=== PATIENT | male | born 1960 | race Hispanic/Latino ===

== ENCOUNTER 2016-09-04 19:41 | Emergency (ER) | payer OTHER ==
[~2016-09-04] VITALS: Ht 165.1 cm; Wt 66.9 kg
[~2016-09-04 19:41] MED LIST: HYDROCODON-ACE1 EAC7 PO
[2016-09-04] MEDS ORDERED: LORTAB 5-325 M1 EACH PO (20:57)
[2016-09-04 21:32] VITALS: BP 123/76
== END 2016-09-04 21:57 | disposition home or self-care (01) ==
LOC: EME → EDBD 19:41 → EME 21:57
PROC: 0RSKXZZ Reposition Left Shoulder Joint, External Approach (ICD-10-PCS; principal; 2016-09-04)
DX: S43.005A Unspecified dislocation of left shoulder joint, initial encounter (principal); X50.9XXA Other and unspecified overexertion or strenuous movements or postures, initial encounter; F10.99 Alcohol use, unspecified with unspecified alcohol-induced disorder; F17.200 Nicotine dependence, unspecified, uncomplicated; Z71.6 Tobacco abuse counseling
CPT/HCPCS: 73030; 99281; 99284